=== PATIENT | male | born 1995 | race African-American/Black ===

== ENCOUNTER 2017-05-30 18:28 | Emergency (ER) | payer OTHER ==
[2017-05-30] MEDS: IBUPROFEN 600 MG TAB PO (21:15)
[2017-05-30] MEDS: METHOCARBAMOL 500 MG TAB PO (21:15)
== END 2017-05-30 21:37 | disposition home or self-care (01) ==
LOC: M ED 18:28
DX: S16.1XXA Strain of muscle, fascia and tendon at neck level, initial encounter (principal); S29.012A Strain of muscle and tendon of back wall of thorax, initial encounter; V49.49XA Driver injured in collision with other motor vehicles in traffic accident, initial encounter; Y92.410 Unspecified street and highway as the place of occurrence of the external cause
CPT/HCPCS: 99284